=== PATIENT | female | born 1950 | race Caucasian/White ===

== ENCOUNTER → 2023-06-01 08:24 | Outpatient (CLI) | payer OTHER, SELFPAY ==
--- NOTE | 2023-06-01 08:28 | DI.RAD.S_ITS ---
PROCEDURE: XR LUMBAR SPINE MIN 4V INDICATIONS: BACK PAIN TECHNIQUE: 5 views of the lumbar spine were acquired, including bilateral oblique views. COMPARISON: [facility], , L-SPINE 2-3 VIEWS, 11/30/2007, 15:37. FINDINGS: Bones: 5 nonrib-bearing vertebrae are present. Decreased osseous mineralization. Minimal retrolisthesis of L2 on L3 and L3 on L4. There is multilevel facet arthropathy, worse at L4-5 and L5-S1. Mild multilevel disc height loss with degenerative endplate changes and spurring is present. No vertebral body compression fractures. No suspicious bony lesions. Soft tissues: Overlying bowel gas pattern is normal. No suspicious soft tissue calcifications. Right upper quadrant surgical clips. Atherosclerotic vascular calcifications. Oblique images: No definite pars defects. IMPRESSION: Multilevel degenerative changes of the lumbar spine. No acute vertebral body compression fracture. Dictated by: Campbell Huang M.D. on 06/01/2023 at 8:59 Approved by: Campbell Huang M.D. on 06/01/2023 at 9:01
== END ==
PROVIDERS: Family Provider Nurse Practitioner; PCP Physician Assistant; Referring Provider Physical Medicine & Rehabilitation; Visit Provider Physical Medicine & Rehabilitation
DX: M47.26 Other spondylosis with radiculopathy, lumbar region (principal); M47.27 Other spondylosis with radiculopathy, lumbosacral region; M54.9 Dorsalgia, unspecified; I10 Essential (primary) hypertension; M48.062 Spinal stenosis, lumbar region with neurogenic claudication
CPT/HCPCS: 72110; 99214

== ENCOUNTER 2023-06-04 13:39 | Outpatient (CLI) | payer OTHER, SELFPAY ==
[2023-06-04] VITALS (8 sets, daily range): BP systolic 129–191; BP diastolic 60–91; PULSE 64–76; RESP 13–21; TEMP 36.3; O2SAT 94–99
--- NOTE | 2023-06-04 13:40 | DI.RAD.S_ITS ---
PROCEDURE: PAIN L/S TRANSFORAMINAL INJECT INDICATIONS: SPONDYLOSIS COMPARISON: [facility], CR, XR LUMBAR SPINE MIN 4V, 06/01/2023, 8:34. FINDINGS: Fluoroscopic spot filming was performed to verify placement of a spinal needle at the L3-L4 level, as labeled on the films. Appropriate location of the needle tip was confirmed by injection of iodinated contrast. IMPRESSION: Intraprocedural examination within normal limits. Dictated by: Gary Vaz M.D. on 06/04/2023 at 17:50 Approved by: Gary Vaz M.D. on 06/04/2023 at 17:51
[2023-06-04] MEDS: MIDAZOLAM 2 MG/2 ML VIAL IV (15:21)
--- NOTE | 2023-06-04 15:37 | P.PCN_ITS ---
Date/Time/Diagnoses Date of procedure: 06/04/23 Time of procedure: 15:37 Pre-procedure diagnosis: 1. FORAMINAL STENOSIS WITH LE SYMPTOMS Post-procedure diagnosis: same Procedure Notes Procedure: 1. FLUOROSCOPICALLY GUIDED CONTRAST CONTROLLED TRANSFORAMINAL EPIDURAL STEROID INJECTION - RIGHT L3/4 TFESI Indications: Anjelica is referred by KHARI Mustafa for treatment of Foraminal Stenosis with right LE Symptoms Physician: Pablo Birmingham Total Fluoroscopy time (seconds): 10 Total sedation minutes: 10 Complications: none Procedure in detail & Post-procedure care: FINDINGS Foraminal Nerve Root Compression secondary to disc disease and facet hypertrophy DESCRIPTION OF PROCEDURE Following review of allergy and review of potential side effects and complications, including, but not necessarily limited to, infection, allergic reaction, local tissue breakdown, stroke, temporary or permanent nerve injury, paralysis, and possible , the patient indicated that the patient understood and agreed to proceed. An informed consent document was signed by the patient, witnessed by a nurse, and placed in the patient's chart. Additionally, other treatment options including medications, modalities, and physical therapy were reviewed with the patient. After review of previous anaesthesic history and IV conscious sedation the patient was deemed safe to proceed with today?s procedure with IV conscious sedation as ASA class II designation. Safety time-out was performed to confirm patient ID, procedure to be performed and site of procedure. IV sedation was accomplished with a combination of 2mg of Versed was administered by the RN after DO order, titrated to patient comfort during the course of the procedure while the patient remained responsive to all verbal commands In the prone position following sterile prep and drape of the lumbar region, the right L3/4 posterior neuroforamen was identified fluoroscopically. The skin was anesthetized via a 25-gauge 1.5-inch needle with 1% lidocaine solution. At this point, a 25-gauge 3.5-inch spinal needle was atraumatically introduced and advanced under fluoroscopic guidance through the posterior right L3/4 neuroforamen to approximately the anterior aspect of the canal. Depth was confirmed on lateral view. Following negative aspiration, injection of approximately 1.5 cc of Isovue 200 under live fluoroscopy in the AP view c onfirmed excellent flow along the nerve root, into the epidural space without vascular or intrathecal uptake observed Radiological data, including multiple fluoroscopic views of the lumbosacral spi ne, reveal a spinal needle at the right L3/4 posterior neuroforamen. Subsequent views show flow of contrast material flowing superiorly and inferiorly along the nerve root confirming epidural flow. Subsequently, a test dose of 1.5 cc of 1% lidocaine solution was administered and patient was observed for two minutes for signs or symptoms of complications, including abdominal pain, shortness of breath, bilateral upper or lower extremity weakness, nausea and vomiting, prior to steroid injection. At this point, a total of 2cc or 10mg of dexamethasone and 6mg of betamethasone was injected without incident. The patient tolerated the procedure well without signs or symptoms of complications prior to transfer to the recovery area continued monitoring without incident. The patient was then transferred to the recovery area where they were observed for an appropriate time after the injection. The patient reported a VAS score of 7 prior to the procedure and a post-procedure VAS of 0. POST OP INSTRUCTIONS The patient was provided a Pain Log to continue to record their response to the target-specific procedure prior to follow-up visit with their referring physician. Additionally, specific post-injection care instructions and a contact number to our office were provided if concerns arise regarding possible complications associated with the procedure are suspected.
--- NOTE | 2023-06-09 07:57 | PC.NURSE ---
Late entry note. MIdazolam 2mg IV given to patient at 1521 on 06/04/23, but did not save in [place]. Dr. Birmingham also injected medications that did not save in [place] as well. Dr. Birmingham notified.
== END 2023-06-04 15:56 | disposition home or self-care (01) ==
PROVIDERS: Family Provider Nurse Practitioner; PCP Physician Assistant; Referring Provider Physical Medicine & Rehabilitation; Visit Provider Physical Medicine & Rehabilitation
DX: M48.061 Spinal stenosis, lumbar region without neurogenic claudication (principal); M51.16 Intervertebral disc disorders with radiculopathy, lumbar region; M47.26 Other spondylosis with radiculopathy, lumbar region
CPT/HCPCS: 64483; 99152; J0702; J1100; J2250

== ENCOUNTER 2023-08-04 08:38 | Outpatient (CLI) | payer OTHER, SELFPAY ==
[2023-08-04] VITALS (10 sets, daily range): BP systolic 130–219; BP diastolic 68–96; PULSE 58–69; RESP 15–22; TEMP 36.7; O2SAT 96–99
--- NOTE | 2023-08-04 08:39 | DI.RAD.S_ITS ---
PROCEDURE: PAIN L/S FACET INJ/BLK 1ST GEMA INDICATIONS: SPONDYLOSIS COMPARISON: None. FINDINGS: Fluoroscopic spot filming was performed to verify placement of spinal needles at the L3, L4 and L5 level(s), as labeled on the films. Appropriate location(s) of the needle tip(s) was confirmed by injection of iodinated contrast. IMPRESSION: Fluoroscopic guidance utilized for facet injections Dictated by: Byron Acosta M.D. on 08/04/2023 at 12:25 Approved by: Byron Acosta M.D. on 08/04/2023 at 12:26
[2023-08-04] MEDS: MIDAZOLAM 2 MG/2 ML VIAL 1 MG IV ×2 (09:20→09:24)
[2023-08-04] MEDS: iopamidoL 15 ML VIAL 3 ML INJ (09:25)
[2023-08-04] MEDS: LIDOCAINE 1% 20 ML 5 ML INJ (09:26)
[2023-08-04] MEDS: BUPIVACAINE 0.5% (PF) 10 ML VIAL 5 ML INJ (09:26)
--- NOTE | 2023-08-04 09:41 | PM.PROC.IR.1 ---
Date/Time/Diagnoses Date of procedure: 08/04/23 Time of procedure: 09:41 Pre-procedure diagnosis: FACET ARTHROPATHY Post-procedure diagnosis: same Procedure Notes Procedure: 1. BILATERAL L3, L4 AND L5 DIAGNOSTIC MB BLOCKS Indications: Anjelica is referred by KHARI Mustafa for treatment of Bilateral Axial LBP. Physician: Pablo Birmingham Total Fluoroscopy time (seconds): 14 Total sedation minutes: 17 Complications: none Procedure in detail & Post-procedure care: DESCRIPTION OF PROCEDURE Fluoroscopically guided, contrast-controlled bilateral L3, L4 AND L5 medial branch blocks with 0.5cc of 0.5% Marcaine. Following review of allergy and review of potential side effects and complications, including, but not necessarily limited to, infection, allergic reaction, local tissue breakdown, nerve injury, paralysis, stroke and possible , the patient indicated that the patient understood and agreed to proceed. An informed consent document was signed by the patient, witnessed by a nurse, and placed in the patient's chart. After review of previous anaesthesic history and IV conscious sedation the patient was deemed safe to proceed with today's procedure with IV conscious sedation as ASA class II designation. Safety time-out was performed to confirm patient ID, procedure to be performed and site of procedure. IV sedation was accomplished with a combination of 2mg of Versed was administered by the RN after DO order, titrated to patient comfort during the course of the procedure while the patient remained responsive to all verbal commands In the prone position, following sterile prep and drape of the lumbar region, the right L3, L4 AND L5 anatomical location of the medial branch of the dorsal ramus was identified fluoroscopically. Subsequently an anesthetic skin wheal using 1% lidocaine solution was initiated at each of the anatomical spots. Subsequently then a 22-gauge 3.5-inch spinal needle was atraumatically introduced and advanced under fluoroscopic guidance at each of the corresponding sites at the right L3, L4 and L5 MB. After negative aspiration, 0.2cc of Isovue 200 was injected, confirming placement without vascular or intrathecal uptake. Subsequently then 0.5cc of 0.5% Marcaine solution was injected at each of the corresponding sites at the right L3, L4 and L5 medial branch locations. The identical procedure was replicated on the left. The patient tolerated the procedure well without signs or symptoms of complications. The patient tolerated the procedure well without signs or symptoms of complications prior to transfer to the recovery area continued monitoring without incident. Post-procedure, the patient was monitored initiating provocative activities to measure the amount of relief from block of the facetogenic pain. The patient reported a VAS of 7 prior to the procedure and a post-procedure VAS of 1. It has been a pleasure to assist in the diagnostic and therapeutic care of your patient. POST OP INSTRUCTIONS The patient was provided with a Pain Log to complete over the next several hours and subsequent days prior to the patient's follow up with the ordering physician. If the patient has income tax investigator relief to the solution applied, then they may be a candidate for medial branch rhizotomy. The patient is aware, was provided, once again, with a Pain Log and will follow up with the referring physician for review and clinical correlation
== END 2023-08-04 10:00 | disposition home or self-care (01) ==
LOC: RAD 08:39
PROVIDERS: Family Provider Nurse Practitioner; PCP Physician Assistant; Referring Provider Physical Medicine & Rehabilitation; Visit Provider Physical Medicine & Rehabilitation
DX: M47.816 Spondylosis without myelopathy or radiculopathy, lumbar region (principal)
CPT/HCPCS: 64493; 64494; 99152; J2250

== ENCOUNTER 2023-09-15 13:49 | Outpatient (CLI) | payer OTHER, SELFPAY ==
[2023-09-15] VITALS (7 sets, daily range): BP systolic 148–210; BP diastolic 59–99; PULSE 69–78; RESP 14–20; O2SAT 94–97
--- NOTE | 2023-09-15 14:30 | DI.RAD.S_ITS ---
PROCEDURE: PAIN L/S TRANSFORAMINAL INJECT INDICATIONS: SPONDYLOSIS COMPARISON: [facility], , PAIN L/S TRANSFORAMINAL INJECT, 06/04/2023, 15:23. FINDINGS: Fluoroscopic spot filming was performed to verify placement of spinal needles at the right-side of L5-S1 level(s), as labeled on the films. Appropriate location(s) of the needle tip(s) was confirmed by injection of iodinated contrast. IMPRESSION: Fluoro guidance was provided intraoperatively for right L5-S1 transforaminal epidural steroid ingestion performed by the ordering physician. Dictated by: Tree García M.D. on 09/15/2023 at 21:06 Approved by: Tree García M.D. on 09/15/2023 at 21:06
[2023-09-15] MEDS: MIDAZOLAM 2 MG/2 ML VIAL IV (15:02)
[2023-09-15] MEDS: iopamidoL 15 ML VIAL 3 ML INJ (15:10)
[2023-09-15] MEDS: BUPIVACAINE 0.25% (PF) VIAL 2 ML INJ (15:10)
[2023-09-15] MEDS: DEXAMETHASONE 10 MG/ML VIAL INJ (15:10)
[2023-09-15] MEDS: BETAMETHASONE 30 MG/5 ML MDV 6 MG INJ (15:11)
--- NOTE | 2023-09-15 15:20 | P.PCN_ITS ---
Date/Time/Diagnoses Date of procedure: 09/15/23 Time of procedure: 15:20 Pre-procedure diagnosis: FORAMINAL STENOSIS WITH LE SYMPTOMS Post-procedure diagnosis: same Procedure Notes Procedure: 1. FLUOROSCOPICALLY GUIDED CONTRAST CONTROLLED TRANSFORAMINAL EPIDURAL STEROID INJECTION - RIGHT L5/S1 TFESI Indications: Anjelica is referred by LOU Bingham for treatment of Foraminal Stenosis with Right LE Symptoms Physician: Pablo Birmingham Total Fluoroscopy time (seconds): 13 Total sedation minutes: 13 Complications: none Procedure in detail & Post-procedure care: FINDINGS Foraminal Nerve Root Compression secondary to disc disease and facet hypertrophy DESCRIPTION OF PROCEDURE Following review of allergy and review of potential side effects and complications, including, but not necessarily limited to, infection, allergic reaction, local tissue breakdown, stroke, temporary or permanent nerve injury, paralysis, and possible , the patient indicated that the patient understood and agreed to proceed. An informed consent document was signed by the patient, witnessed by a nurse, and placed in the patient's chart. Additionally, other treatment options including medications, modalities, and physical therapy were reviewed with the patient. After review of previous anaesthesic history and IV conscious sedation the patient was deemed safe to proceed with today?s procedure with IV conscious sedation as ASA class II designation. Safety time-out was performed to confirm patient ID, procedure to be performed and site of procedure. IV sedation was accomplished with a combination of 2mg of Versed was administered by the RN after DO order, titrated to patient comfort during the course of the procedure while the patient remained responsive to all verbal commands In the prone position following sterile prep and drape of the lumbar region, the right L5/S1 posterior neuroforamen was identified fluoroscopically. The skin was anesthetized via a 25-gauge 1.5-inch needle with 1% lidocaine solution. At this point, a 25-gauge 3.5-inch spinal needle was atraumatically introduced and advanced under fluoroscopic guidance through the posterior right L5/S1 neuroforamen to approximately the anterior aspect of the canal. Depth was confirmed on lateral view. Following negative aspiration, injection of approximately 1.5cc of Isovue 200 under live fluoroscopy in the AP view confirmed excellent flow along the nerve root, into the epidural space without vascular or intrathecal uptake observed Radiological data, including multiple fluoroscopic views of the lumbosacral spine, reveal a spinal needle at the right L5/S1 posterior neuroforamen. Subsequent views show flow of contrast material flowing superiorly and inferiorly along the nerve root confirming epidural flow. Subsequently, a test dose of 1.5 cc of 1% lidocaine solution was administered and patient was observed for two minutes for signs or symptoms of complications, including abdominal pain, shortness of breath, bilateral upper or lower extr emity weakness, nausea and vomiting, prior to steroid injection. At this point, a total of 2cc or 10mg of dexamethasone and 6mg of betamethasone was injected without incident. The procedure tolerated the procedure well without signs or symptoms of complications prior to transfer to the recovery area continued monitoring without incident. The patient was then transferred to the recovery area where they were observed for an appropriate time after the injection. The patient reported a VAS score of 7 prior to the procedure and a post- procedure VAS of 0. POST OP INSTRUCTIONS The patient was provided a Pain Log to continue to record their response to the target-specific procedure prior to follow-up visit with their referring physician. Additionally, specific post-injection care instructions and a contact number to our office were provided if concerns arise regarding possible complications associated with the procedure are suspected.
== END 2023-09-15 15:36 | disposition home or self-care (01) ==
PROVIDERS: Family Provider Nurse Practitioner; PCP Physician Assistant; Referring Provider Physical Medicine & Rehabilitation; Visit Provider Physical Medicine & Rehabilitation
DX: M48.07 Spinal stenosis, lumbosacral region (principal); M51.17 Intervertebral disc disorders with radiculopathy, lumbosacral region; M47.27 Other spondylosis with radiculopathy, lumbosacral region
CPT/HCPCS: 64483; 99152; J0702; J1100; J2250; J3490

== ENCOUNTER → 2023-10-19 06:48 | Outpatient (CLI) | payer OTHER, SELFPAY ==
--- NOTE | 2023-10-19 06:49 | DI.US.S_ITS ---
PROCEDURE: US ARTERIAL DUPLEX LE BI INDICATIONS: CLAUDICATION TECHNIQUE: Color and pulse Doppler interrogation was performed of both lower extremity arterial systems, with image documentation. COMPARISON: [facility], , ARTERIAL LOW.EXTREMITY UNILAT., 09/17/2007, 13:06. FINDINGS: Right lower extremity: Common femoral artery: 98 cm/sec, with biphasic flow. Deep femoral artery: 58 cm/sec, with biphasic flow. Proximal superficial femoral artery: 90 cm/sec, with biphasic flow. Mid superficial femoral artery: 74 cm/sec, with biphasic flow. Distal superficial femoral artery: 56 cm/sec, with biphasic flow. Popliteal artery: 56 cm/sec, with biphasic flow. Posterior tibial artery: 34 cm/sec, with biphasic flow. Anterior tibial artery/dorsalis pedis: 36 cm/sec, with biphasic flow. Barber-scale imaging description: Minimal plaque in the right common femoral artery. Left lower extremity: Common femoral artery: 152 cm/sec, with triphasic flow. Deep femoral artery: 113 cm/sec, with biphasic flow. Proximal superficial femoral artery: 101 cm/sec, with biphasic flow. Mid superficial femoral artery: 100 cm/sec, with biphasic flow. Distal superficial femoral artery: 72 cm/sec, with biphasic flow. Popliteal artery: 68 cm/sec, with biphasic flow. Posterior tibial artery: 51 cm/sec, with biphasic flow. Anterior tibial artery/dorsalis pedis: 56 cm/sec, with biphasic flow. Barber-scale imaging description: No significant plaque. IMPRESSION: Patent lower extremity vasculature, without hemodynamically significant stenosis. Minimal atherosclerotic plaque in the right common femoral artery. Dictated by: Byron Acosta M.D. on 10/19/2023 at 9:23 Approved by: Byron Acosta M.D. on 10/19/2023 at 9:45
== END ==
LOC: US 06:48
PROVIDERS: Family Provider Nurse Practitioner; PCP Physician Assistant; Referring Provider Physical Medicine & Rehabilitation; Visit Provider Physical Medicine & Rehabilitation
DX: I99.8 Other disorder of circulatory system (principal)
CPT/HCPCS: 93925

== ENCOUNTER 2023-12-29 08:05 | Outpatient (CLI) | payer OTHER, SELFPAY ==
[2023-12-29] VITALS (8 sets, daily range): BP systolic 143–206; BP diastolic 64–87; PULSE 73–83; RESP 16–24; TEMP 36.2; O2SAT 93–99
--- NOTE | 2023-12-29 08:45 | DI.RAD.S_ITS ---
PROCEDURE: PAIN L/S FACET INJ/BLK 1ST GEMA INDICATIONS: FACET ARTHOPATHY COMPARISON: [facility], , PAIN L/S FACET INJ/BLK 1ST GEMA, 08/04/2023, 9:25. FINDINGS: Fluoroscopic spot filming was performed to verify placement of spinal needles at the left L3, L4 and L5 level(s), as labeled on the films. Appropriate location(s) of the needle tip(s) was confirmed by injection of iodinated contrast. IMPRESSION: Fluoro guidance was provided intraoperatively for bilateral L3, L4, and L5 medial branch blocks performed by the ordering physician. Dictated by: Tree García M.D. on 12/29/2023 at 15:58 Approved by: Tree García M.D. on 12/29/2023 at 15:58
[2023-12-29] MEDS: MIDAZOLAM 2 MG/2 ML VIAL IV (09:15)
[2023-12-29] MEDS: iopamidoL 15 ML VIAL 3 ML INJ (09:22)
[2023-12-29] MEDS: LIDOCAINE 1% 20 ML 5 ML INJ (09:22)
[2023-12-29] MEDS: LIDOCAINE 2% INJ SDV 5ML 5 ML INJ (09:23)
--- NOTE | 2023-12-29 09:31 | PM.PROC.IR.1 ---
Date/Time/Diagnoses Date of procedure: 12/29/23 Time of procedure: 09:31 Pre-procedure diagnosis: 1. FACET ARTHROPATHY Post-procedure diagnosis: same Procedure Notes Procedure: 1. BILATERAL L3, L4 AND L5 DIAGNOSTIC MB BLOCKS Indications: Anjelica is referred by KHARI Mustafa for treatment of Bilateral Axial LBP. Physician: Pablo Birmingham Total Fluoroscopy time (seconds): 12 Total sedation minutes: 13 Complications: none Procedure in detail & Post-procedure care: DESCRIPTION OF PROCEDURE Fluoroscopically guided, contrast-controlled bilateral L3, L4 AND L5 medial branch blocks with 0.5cc of 2% Lidocaine. Following review of allergy and review of potential side effects and complications, including, but not necessarily limited to, infection, allergic reaction, local tissue breakdown, nerve injury, paralysis, stroke and possible , the patient indicated that the patient understood and agreed to proceed. An informed consent document was signed by the patient, witnessed by a nurse, and placed in the patient's chart. After review of previous anaesthesic history and IV conscious sedation the patient was deemed safe to proceed with today's procedure with IV conscious sedation as ASA class II designation. Safety time-out was performed to confirm patient ID, procedure to be performed and site of procedure. IV sedation was accomplished with a combination of 2mg of Versed was administered by the RN after DO order, titrated to patient comfort during the course of the procedure while the patient remained responsive to all verbal commands In the prone position, following sterile prep and drape of the lumbar region, the right L3, L4 AND L5 anatomical location of the medial branch of the dorsal ramus was identified fluoroscopically. Subsequently an anesthetic skin wheal using 1% lidocaine solution was initiated at each of the anatomical spots. Subsequently then a 22-gauge 3.5-inch spinal needle was atraumatically introduced and advanced under fluoroscopic guidance at each of the corresponding sites at the right L3, L4 and L5 MB. After negative aspiration, 0.2cc of Isovue 200 was injected, confirming placement without vascular or intrathecal uptake. Subsequently then 0.5cc of 2% Lidocaine solution was injected at each of the corresponding sites at the right L3, L4 and L5 medial branch locations. The identical procedure was replicated on the left. The patient tolerated the procedure well without signs or symptoms of complications. The patient tolerated the procedure well without signs or symptoms of complications prior to transfer to the recovery area continued monitoring without incident. Post-procedure, the patient was monitored initiating provocative activities to measure the amount of relief from block of the facetogenic pain. The patient reported a VAS of 8 prior to the procedure and a post-procedure VAS of 1. It has been a pleasure to assist in the diagnostic and therapeutic care of your patient. POST OP INSTRUCTIONS The patient was provided with a Pain Log to complete over the next several hours and subsequent days prior to the patient's follow up with the ordering physician. If the patient has breastfeeding peer counselor relief to the solution applied, then they may be a candidate for medial branch rhizotomy. The patient is aware, was provided, once again, with a Pain Log and will follow up with the referring physician for review and clinical correlation
== END 2023-12-29 09:52 | disposition home or self-care (01) ==
PROVIDERS: Family Provider Nurse Practitioner; PCP Physician Assistant; Referring Provider Physical Medicine & Rehabilitation; Visit Provider Physical Medicine & Rehabilitation
DX: M47.816 Spondylosis without myelopathy or radiculopathy, lumbar region (principal)
CPT/HCPCS: 64493; 64494; 99152; J2250

== ENCOUNTER 2024-02-16 07:19 | Outpatient (CLI) | payer OTHER, SELFPAY ==
[2024-02-16] VITALS (13 sets, daily range): BP systolic 123–212; BP diastolic 59–89; PULSE 63–80; RESP 14–18; TEMP 37.1; O2SAT 94–98
--- NOTE | 2024-02-16 08:00 | DI.RAD.S_ITS ---
PROCEDURE: PAIN L/S MED/LAT N RFA BILAT INDICATIONS: Bilateral L3-L4 and L5 medial branch RFA COMPARISON: None. FINDINGS: Fluoroscopic spot filming was performed to verify placement of spinal needles at the bilateral L3, L4, and L5 medial branch level(s) for performance of a multilevel bilateral lumbar rhizotomy. IMPRESSION: Imaging guidance provided for multilevel bilateral lumbar rhizotomy. Dictated by: Pardeep Cuellar M.D. on 02/16/2024 at 10:32 Approved by: Pardeep Cuellar M.D. on 02/16/2024 at 10:33
[2024-02-16] MEDS: fentaNYL 100 MCG/2 ML INJ 50 MCG IV (08:05)
[2024-02-16] MEDS: MIDAZOLAM 2 MG/2 ML VIAL 1 MG IV ×2 (08:05→08:31)
[2024-02-16] MEDS: BUPIVACAINE 0.5% (PF) 10 ML VIAL 5 ML INJ (08:13)
[2024-02-16] MEDS: LIDOCAINE 1% 20 ML 5 ML INJ (08:13)
--- NOTE | 2024-02-16 08:52 | P.PCN_ITS ---
Date/Time/Diagnoses Date of procedure: 02/16/24 Time of procedure: 08:52 Pre-procedure diagnosis: 1. RECALCITRANT FACET ARTHROPATHY Post-procedure diagnosis: same Procedure Notes Procedure: 1. BILATERAL L3, L4 AND L5 MEDIAL BRANCH RADIOFREQUENCY NEUROTOMY Indications: Anjelica is referred by LOU Bingham for treatment of facet arthropathy. Physician: Pablo Birmingham Total Fluoroscopy time (seconds): 18 Total sedation minutes: 41 Complications: none Procedure in detail & Post-procedure care: DESCRIPTION OF PROCEDURE Bilateral L3, L4 and L5 medial branch radiofrequency neurotomy The patient is well known to this clinic having undergone previous facet injections with good but temporary relief. The patient has experienced appropriate, concordant relief with previous facet and median branch blocks but the patient's pain has been recalcitrant to further conservative measures. Therefore, based upon the patient's relief and persistent symptoms, the patient is considered an appropriate candidate for facet rhizotomy. All of the patient's questions regarding the risks versus benefits of the procedure, including, but not limited to, bleeding, infection, temporary as well as lasting nerve injury, paralysis, stroke, and , as well treatment alternatives were answered to satisfaction. After obtaining informed consent, denial of pertinent drug allergies, as well as being made aware of the potential risks of bleeding, infection, spinal cord trauma, paralysis, temporary and permanent nerve damage, seizure, stroke, and possible , the patient was brought to the fluoroscopy suite and positioned prone on the fluoroscopy table. After review of previous anaesthesic history and IV conscious sedation the patient was deemed safe to proceed with today's procedure with IV conscious sedation as ASA class II designation. Safety time-out was performed to confirm patient ID, procedure to be performed and site of procedure. IV sedation was accomplished with a combination of 2mg of Versed and 50mcg of Fentanyl administered by the RN after DO order, titrated to patient comfort during the course of the procedure while the patient remained responsive to all verbal commands. The lumbar region was prepped in usual sterile fashion and covered with a fenestrated drape in the usual sterile fashion. Appropriate monitors applied including pulse oximeter, pulse, and blood pressure for regular monitoring throughout the procedure. After local infiltration using 1% lidocaine, under fluoroscopic guidance, a 10- cm RF insulated needle with a 10-mm active tip was positioned parallel to the junction of the right the superior articulating process where the L5 medial branch resides. Needle placement was confirmed with motor stimulation of .5v on the right which produced local stimulation without radicular component. The stimulation was then increased to 2v with, once again, only local multifidus stimulation without radicular component. The needle was then removed and the identical procedure was performed along the length of the right L4 medial branch with motor stimulation at .7v on the right. The identical procedure was once again performed along the length of the right L3 and medial branch with motor stimulation of .5v on the right. The medial branches were then anesthetised with 0.5% marcaine. This was then followed by two discreet lesions performed at 80 degrees Celsius for 90 seconds each. The identical procedures were repeated on the left. The patient tolerated the procedure well without signs or symptoms of complications prior to transfer to the recovery area continued monitoring without incident. The patient was then transferred to the recovery area where they were observed for an appropriate period of time after the injection. The patient reported a VAS score of 9 prior to the procedure and a post-procedure VAS of 0. POST OP INSTRUCTIONS The patient was provided a Pain Log to continue to record the patient's response to the target-specific procedure prior to the patient's follow-up visit with the referring physician. Additionally, specific post-injection care instructions and a contact number to our office were provided if concerns arise regarding possible complications associated with the procedure are suspected.
== END 2024-02-16 09:08 | disposition home or self-care (01) ==
LOC: RAD 07:20
PROVIDERS: Family Provider Nurse Practitioner; PCP Physician Assistant; Referring Provider Physical Medicine & Rehabilitation; Visit Provider Physical Medicine & Rehabilitation
DX: M47.816 Spondylosis without myelopathy or radiculopathy, lumbar region (principal)
CPT/HCPCS: 64635; 64636; 99152; 99153; J2250; J3010